=== PATIENT | male | born 1965 | race Caucasian/White ===

== ENCOUNTER 2021-08-20 15:47 | Emergency (ER) | payer OTHER ==
[2021-08-20] MEDS ORDERED: Morphine 4 MG/ML VIAL ONE (15:56)
[2021-08-20] MEDS ORDERED: Ondansetron PF 4 MG/2 ML Vial ONE ×2 (15:56→17:13)
[2021-08-20 16:09] LABS: #Eosinphils 0.2 10x3/uL (0.0-0.5); #Monocytes 0.8 10x3/uL (0.0-1.1); %Basophils 0.5 % (0.0-2.0); %Eosinophils 1.7 % (0.0-6.0); %Lymphocytes 42.4 % (18.0-47.0); %Monocytes 8.8 % (0.0-10.0); %Neutrophils 46.4 % (40.0-75.0); Hemoglobin 13.9 g/dL (13.5-17.5); Mean Corpuscular HGB CONC 33.2 g/dL (32.0-36.0); Mean Corpuscular Hemoglobin 29.3 pg (27.0-33.0); Mean Corpuscular Volume 88.4 fl (81.2-95.1); Mean Platelet Volume 10.9 fl (7.4-10.4); Platelet Count 200 10x3/uL (150-450); RBC Distribution Width 12.5 % (11.5-14.5); Red Blood Cell (RBC) Count 4.74 10x6/uL (4.32-5.72); White Blood Cell (WBC) Count 8.7 10x3/uL (3.5-10.5)
[2021-08-20] MEDS ORDERED: Bupivacaine PF 0.5% 30 ML VIAL ONE ×2 (16:14→17:14)
[2021-08-20 16:16] LABS: ALT (SGPT) 21 U/L (8-55); AST (SGOT) 18 U/L (5-34); Albumin 4.3 g/dL (3.5-5.0); Alkaline Phosphatase 73 U/L (40-110); Anion Gap 16 mmol/L (10-20); BUN (Urea Nitrogen) 12 mg/dL (8.4-25.7); Bilirubin, Total 0.5 mg/dL (0.2-1.2); Calc. Creatinine Clearance 0 mL/min (70-130); Calcium 9.1 mg/dL (7.8-10.44); Carbon Dioxide 21 mmol/L (22-29); Chloride 107 mmol/L (98-107); Globulin 2.8 g/dL (2.4-3.5); Glucose 110 mg/dL (70-105); Potassium 3.8 mmol/L (3.5-5.1); Protein, Total 7.1 g/dL (6.0-8.3); Sodium 140 mmol/L (136-145)
[2021-08-20 17:09] LABS: SARS-CoV-2 NAA Rapid Test Not Detected (NotDetected)
[2021-08-20] MEDS ORDERED: Fentanyl 100 MCG/2 ML VIAL ONE (17:10)
[2021-08-20] MEDS ORDERED: Midazolam HCl 2 mg/2 ml Vial ONE (17:10)
[2021-08-20] MEDS ORDERED: PROPOFOL 20 ML ONE (17:11)
[2021-08-20] MEDS ORDERED: Dexamethasone 4 mg/ml Vial ONE (17:13)
[2021-08-20] MEDS ORDERED: Lidocaine 1% PF 5 ML VIAL ONE (17:13)
[2021-08-20] MEDS ORDERED: Succinylcholine 200 MG/10 ml SYRINGE FS ONE (17:13)
[2021-08-20] MEDS ORDERED: Neomycin-Polymyxin 1 ML AMP ONE (17:15)
== END 2021-08-20 18:19 | disposition admitted as inpatient to this hospital (09) ==
LOC: CSHERS 15:47
DX: S61.210A Laceration without foreign body of right index finger without damage to nail, initial encounter (principal); S61.214A Laceration without foreign body of right ring finger without damage to nail, initial encounter; S61.216A Laceration without foreign body of right little finger without damage to nail, initial encounter; S61.212A Laceration without foreign body of right middle finger without damage to nail, initial encounter; W27.0XXA Contact with workbench tool, initial encounter; Z20.822 Contact with and (suspected) exposure to COVID-19
CPT/HCPCS: 36415; 64450; 80053; 85025; 86850; 86900; 86901; 96365; 96375; J0690; J1100; J2250; J2270; J2405; J2704; J3010; S0020; U0002